=== PATIENT | female | born 1955 | race Caucasian/White ===

== ENCOUNTER 2023-11-05 17:08 | Emergency (ER) | payer OTHER, SELFPAY ==
[2023-11-05] VITALS (16 sets, daily range): BP systolic 151–183; BP diastolic 65–101; PULSE 70–92; RESP 16–22; TEMP 36.4–36.5; O2SAT 92–99; BMI 25.6
--- NOTE | 2023-11-05 17:31 | ED_ITS ---
HPI - General Adult <Jr Clifford DO - Last Filed: 11/06/23 07:12> General Chief complaint: Abdominal Pain Stated complaint: abdominal pain Time Seen by Provider: 11/05/23 17:17 Source: patient and family Mode of arrival: Ambulatory History of Present Illness HPI narrative: Patient is a 68-year-old female. Several days ago was seen at an outside facility for right upper quadrant pain/right lower chest wall pain. Had an ultrasound. Was told that she had gallstones but no other signs of an infection. Was discharged home. Since that time has had worsening right upper quadrant pain. Subjective fevers. No vomiting. No chest pain. No shortness of breath. No change in bowel habits or urinary symptoms. They were reportedly not sent home with any pain medication. They have not followed up with General surgery since the diagnosis. Related Data Home Medications Medication Instructions Recorded Confirmed budesonide 0.5 mg/2 mL suspension 0.5 mg inhalation BID 11/05/23 11/05/23 for nebulization cefdinir 300 mg capsule 300 mg PO DAILY 11/05/23 11/05/23 insulin aspart U-100 100 unit/mL 38 unit SUBCUT BID 11/05/23 11/05/23 (3 mL) subcutaneous pen (Novolog FlexPen U-100 Insulin aspart) insulin glargine 100 unit/mL (3 38 unit SUBCUT BID 11/05/23 11/05/23 mL) subcutaneous pen (Basaglar KwikPen U-100 Insulin) lisinopril 40 mg tablet 40 mg PO DAILY 11/05/23 11/05/23 metformin 1,000 mg tablet 1,000 mg PO BID 11/05/23 11/05/23 metoprolol tartrate 25 mg tablet 25 mg PO BID 11/05/23 11/05/23 trazodone 50 mg tablet 100 mg PO ONCE PM PRN Anxiety 11/05/23 11/05/23 Previous Rx's Medication Instructions Recorded hydrocodone 5 mg-acetaminophen 325 1 tab PO Q6H PRN pain #10 tabs 11/05/23 mg tablet Allergies Allergy/AdvReac Type Severity Reaction Status Date / Time methylprednisolone Allergy Severe Palpitation Verified 11/05/23 18:04 s oxycodone [From OxyContin] Allergy Unknown Verified 11/05/23 18:07 Penicillins Allergy Unknown Verified 11/05/23 18:02 sulfamethoxazole Allergy Palpitation Verified 11/05/23 18:07 [From s Sulfamethoxazole-Trimethoprim] trimethoprim Allergy Palpitation Verified 11/05/23 18:07 [From s Sulfamethoxazole-Trimethoprim] contrast dye Allergy Unknown Uncoded 11/05/23 18:07 Review of Systems <Jr Clifford DO - Last Filed: 11/06/23 07:12> Constitutional Constitutional: Reports system reviewed and no additional complaints, except as documented Cardiovascular Cardiovascular: Reports system reviewed and no additional complaints, except as documented Respiratory Respiratory: Reports system reviewed and no additional complaints, except as documented Gastrointestinal Gastrointestinal: Reports system reviewed and no additional complaints, except as documented Genitourinary Genitourinary: Reports system reviewed and no additional complaints, except as documented Integumentary/Breasts Skin/Breast: Reports system reviewed and no additional complaints, except as documented Exam <Jr Clifford DO - Last Filed: 11/06/23 07:12> Initial Vital Signs Initial Vital Signs: Vital Signs Temperature 97.5 F L 11/05/23 17:12 Pulse Rate 92 H 11/05/23 17:12 Respiratory Rate 11/05/23 17:12 Blood Pressure 171/101 H 11/05/23 17:12 Pulse Oximetry 99 11/05/23 17:12 Oxygen Delivery Method Room Air 11/05/23 17:12 HENOK Head: normal to inspection and normocephalic Neck Other: Stoma in anterior neck with a history of trach Resp Effort & Inspection: normal respiratory effort Auscultation: clear to auscultation bilaterally Cardio Rate: regular rate Rhythm: regular rhythm GI Inspection: normal to inspection and non-distended Palpation: soft, No firm, guarding and tender (Right upper quadrant, positive Hernandez's sign) Back/Spine/Pelvis Back: No CVA tenderness Neuro General: patient alert and patient awake Extrem Other: No gross deformities <Laura Ortega DO - Last Filed: 11/06/23 02:07> Initial Vital Signs Initial Vital Signs: Vital Signs Temperature 97.5 F L 11/05/23 17:12 Pulse Rate 92 H 11/05/23 17:12 Respiratory Rate 11/05/23 17:12 Blood Pressure 171/101 H 11/05/23 17:12 Pulse Oximetry 99 11/05/23 17:12 Oxygen Delivery Method Room Air 11/05/23 17:12 Course <Jr Clifford DO - Last Filed: 11/06/23 07:12> Orders Ordered: Discontinued Medications Morphine Sulfate (Morphine 4 Mg/Ml Inj) 4 mg IV NOW ONE Stop: 11/05/23 17:32 Last Admin: 11/05/23 17:44 Dose: 4 mg Documented By: VIOLETA Morphine Sulfate (Morphine 2 Mg/Ml Inj) 2 mg IV NOW ONE Stop: 11/05/23 20:09 Last Admin: 11/05/23 20:17 Dose: 2 mg Documented By: ISI Vital Signs Vital signs: Vital Signs - 8 hr 11/05/23 18:30 11/05/23 18:31 11/05/23 18:31 Temperature Pulse Rate 86 83 Respiratory Rate 18 Blood Pressure 167/68 H Pulse Oximetry 95 95 Oxygen Delivery Method 11/05/23 19:00 11/05/23 19:00 11/05/23 19:30 Temperature Pulse Rate 81 79 Respiratory Rate Blood Pressure 174/74 H Pulse Oximetry 94 95 Oxygen Delivery Method 11/05/23 19:31 11/05/23 19:31 11/05/23 20:00 Temperature Pulse Rate 79 81 Respiratory Rate Blood Pressure 160/98 H Pulse Oximetry 95 96 Oxygen Delivery Method 11/05/23 20:01 11/05/23 20:01 11/05/23 20:42 Temperature Pulse Rate 81 87 Respiratory Rate Blood Pressure 183/77 H Pulse Oximetry 96 92 Oxygen Delivery Method 11/05/23 20:43 11/05/23 20:43 11/05/23 21:00 Temperature Pulse Rate 85 Respiratory Rate Blood Pressure 151/65 H 170/82 H Pulse Oximetry 93 Oxygen Delivery Method 11/05/23 21:00 11/05/23 21:30 11/05/23 21:30 Temperature Pulse Rate 78 79 Respiratory Rate Blood Pressure 166/72 H Pulse Oximetry 93 92 Oxygen Delivery Method 11/05/23 22:44 Temperature 97.7 F Pulse Rate 70 Respiratory Rate 16 Blood Pressure 154/66 H Pulse Oximetry 98 Oxygen Delivery Method Room Air <Laura Ortega DO - Last Filed: 11/06/23 02:07> Orders Ordered: Discontinued Medications Morphine Sulfate (Morphine 4 Mg/Ml Inj) 4 mg IV NOW ONE Stop: 11/05/23 17:32 Last Admin: 11/05/23 17:44 Dose: 4 mg Documented By: VIOLETA Morphine Sulfate (Morphine 2 Mg/Ml Inj) 2 mg IV NOW ONE Stop: 11/05/23 20:09 Last Admin: 11/05/23 20:17 Dose: 2 mg Documented By: ISI Vital Signs Vital signs: Vital Signs - 8 hr 11/05/23 18:30 11/05/23 18:31 11/05/23 18:31 Temperature Pulse Rate 86 83 Respiratory Rate 18 Blood Pressure 167/68 H Pulse Oximetry 95 95 Oxygen Delivery Method 11/05/23 19:00 11/05/23 19:00 11/05/23 19:30 Temperature Pulse Rate 81 79 Respiratory Rate Blood Pressure 174/74 H Pulse Oximetry 94 95 Oxygen Delivery Method 11/05/23 19:31 11/05/23 19:31 11/05/23 20:00 Temperature Pulse Rate 79 81 Respiratory Rate Blood Pressure 160/98 H Pulse Oximetry 95 96 Oxygen Delivery Method 11/05/23 20:01 11/05/23 20:01 11/05/23 20:42 Temperature Pulse Rate 81 87 Respiratory Rate Blood Pressure 183/77 H Pulse Oximetry 96 92 Oxygen Delivery Method 11/05/23 20:43 11/05/23 20:43 11/05/23 21:00 Temperature Pulse Rate 85 Respiratory Rate Blood Pressure 151/65 H 170/82 H Pulse Oximetry 93 Oxygen Delivery Method 11/05/23 21:00 11/05/23 21:30 11/05/23 21:30 Temperature Pulse Rate 78 79 Respiratory Rate Blood Pressure 166/72 H Pulse Oximetry 93 92 Oxygen Delivery Method 11/05/23 22:44 Temperature 97.7 F Pulse Rate 70 Respiratory Rate 16 Blood Pressure 154/66 H Pulse Oximetry 98 Oxygen Delivery Method Room Air Medical Decision Making <Jr Clifford, DO - Last Filed: 11/06/23 07:12> Lab Data 11/05/23 17:36 11/05/23 17:36 Labs: Lab Results 11/05/23 Range/Units 17:36 WBC 7.1 (4.5-11.0) X10^3/uL RBC 4.45 (4.0-5.2) X10^6/uL Hgb 12.7 (12.0-16.0) g/dL Hct 37.3 (36-46) % MCV 84.0 (80-100) fL MCH 28.6 (26-34) PG MCHC 34.1 (30-36) % RDW 13.6 (11.6-14.8) % Plt Count 406 H (150-400) X10^3/uL Neut % (Auto) 60.3 (50-75) % Lymph % (Auto) 25.2 (25-40) % [place] % (Auto) 12.3 (3-14) % Eos % (Auto) 1.7 L (2-4) % Baso % (Auto) 0.5 (0-2) % Neut # (Auto) 4300 (9373-5969) /uL Lymph # (Auto) 1800 (8924-1450) /uL [place] # (Auto) 900 (0-900) /uL Eos # (Auto) 100 (0-450) /uL Baso # (Auto) 0 (0-100) /uL Sodium 134 L (137-145) mmol/L Potassium 4.9 (3.4-5.1) mmol/L Chloride 101 (98-107) mmol/L Carbon Dioxide 25 (22-32) mmol/L BUN 35 H (7-17) mg/dL Creatinine 1.41 H (0.52-1.04) mg/dL Estimated GFR 41 L (>60) mL/min BUN/Creatinine Ratio 24.8 H (6-22) Glucose 145 H (80-110) mg/dL Calcium 9.4 (8.4-10.2) mg/dL Total Bilirubin 0.4 (0.2-1.3) mg/dL AST 36 (14-36) IU/L ALT 25 (<35) IU/L Alkaline Phosphatase 59 (38-126) U/L Total Protein 7.6 (6.3-8.2) g/dL Albumin 3.8 (3.5-5.0) g/dL Globulin 3.8 (1.7-4.1) g/dL Albumin/Globulin Ratio 1.0 (1.0-2.8) Lipase 329 H (23-300) U/L [facility] Narrative Medical decision making narrative: Per report the patient has a history of cholelithiasis. Has had worsening pain since she was given this diagnosis. Subjective fevers. Pain will be his for labs and symptom control and right upper quadrant ultrasound. Care turned over to night provider to follow-up and disposition. <Laura Ortega DO - Last Filed: 11/06/23 02:07> Lab Data Labs: Lab Results 11/05/23 Range/Units 17:36 WBC 7.1 (4.5-11.0) X10^3/uL RBC 4.45 (4.0-5.2) X10^6/uL Hgb 12.7 (12.0-16.0) g/dL Hct 37.3 (36-46) % MCV 84.0 (80-100) fL MCH 28.6 (26-34) PG MCHC 34.1 (30-36) % RDW 13.6 (11.6-14.8) % Plt Count 406 H (150-400) X10^3/uL Neut % (Auto) 60.3 (50-75) % Lymph % (Auto) 25.2 (25-40) % [place] % (Auto) 12.3 (3-14) % Eos % (Auto) 1.7 L (2-4) % Baso % (Auto) 0.5 (0-2) % Neut # (Auto) 4300 (5030-7232) /uL Lymph # (Auto) 1800 (0810-2650) /uL [place] # (Auto) 900 (0-900) /uL Eos # (Auto) 100 (0-450) /uL Baso # (Auto) 0 (0-100) /uL Sodium 134 L (137-145) mmol/L Potassium 4.9 (3.4-5.1) mmol/L Chloride 101 (98-107) mmol/L Carbon Dioxide 25 (22-32) mmol/L BUN 35 H (7-17) mg/dL Creatinine 1.41 H (0.52-1.04) mg/dL Estimated GFR 41 L (>60) mL/min BUN/Creatinine Ratio 24.8 H (6-22) Glucose 145 H (80-110) mg/dL Calcium 9.4 (8.4-10.2) mg/dL Total Bilirubin 0.4 (0.2-1.3) mg/dL AST 36 (14-36) IU/L ALT 25 (<35) IU/L Alkaline Phosphatase 59 (38-126) U/L Total Protein 7.6 (6.3-8.2) g/dL Albumin 3.8 (3.5-5.0) g/dL Globulin 3.8 (1.7-4.1) g/dL Albumin/Globulin Ratio 1.0 (1.0-2.8) Lipase 329 H (23-300) U/L Imaging Data CT scan - abdomen/pelvis: Radiologist's Impression: PROCEDURE: CT ABDOMEN PELVIS W CON INDICATIONS: ruq pain, persistant worse TECHNIQUE: After the administration of intravenous contrast, axial sections acquired from the lung bases to the pubic symphysis. Coronal and sagittal reformats were performed. For radiation dose reduction, the following was used: automated exposure control, adjustment of mA and/or kV according to patient size. COMPARISON: None. FINDINGS: Image quality: Diagnostic. Lower Chest: No significant findings. ABDOMEN: Liver: No solid mass. Gallbladder: No radiopaque gallstones or wall thickening. Biliary ducts: No biliary dilation. Pancreas: No ductal dilation. Spleen: Size is within normal limits. Adrenal Glands: No adrenal nodules. Kidneys and Ureters: No hydronephrosis. No solid mass. No complex renal cystic lesion which requires follow up. Stomach and Bowel: Normal colonic caliber, without significant wall thickening. Right colonic obstipation. Peritoneum: No abnormal intraperitoneal fluid. No free air. Ventral Wall: No hernia. Abdominal Nodes: No retroperitoneal or mesenteric adenopathy by size criteria. Vessels: Aorta and inferior vena cava are normal in size. PELVIS: Pelvic Organs: Unremarkable. Bladder: Unremarkable. Pelvic Nodes: No enlarged lymph nodes. Miscellaneous: No inguinal hernias are seen. Bones: No aggressive osseous abnormality. Right cecal obstipation. IMPRESSION: Colonic obstipation on the right involving the cecum and extending into the hepatic flexure of the colon. This may explain current symptomatology. No biliary distension or evidence of pancreatitis is currently found. Dictated by: Juan Monzon M.D. on 11/05/2023 at 21:42 US - abdomen: Radiologist's Impression: PROCEDURE: US ABDOMEN LIMITED INDICATIONS: known gallstones, worsening right upper quadrant pain TECHNIQUE: Real-time focused scanning was performed of the abdomen, with image documentation. COMPARISON: None. FINDINGS: The liver is normal in size and demonstrates no suspicious lesions. Tiny nonobstructing stones are seen layering within the dependent gallbladder. The gallbladder wall is not thickened, measuring 3 mm or less. No specific pericholecystic fluid is seen. The sonographic Hernandez sign is negative. There is no biliary dilatation, the common bile duct measures 5 mm. The pancreas is not well seen, secondary to overlying bowel gas. IMPRESSION: Small layering gallstones are seen, without additional sonographic signs of cholecystitis. No biliary dilatation. Dictated by: Vince Tijerina M.D. on 11/05/2023 at 18:11 Approved by: Vince Tijerina M.D. on 11/05/2023 at 18:12 [facility] Narrative Medical decision making narrative: Per report the patient has a history of cholelithiasis. Has had worsening pain since she was given this diagnosis. Subjective fevers. Pain will be his for labs and symptom control and right upper quadrant ultrasound. Care turned over to night provider to follow-up and disposition. Dr. Ortega-patient signed out to me by Dr. Clifford I have seen evaluated patient myself. She is tender in her right upper quadrant. Initially seen without her brother at bedside who has a much better historian. They were seen at outside facility had x-ray and ultrasound which did show cholelithiasis. However for 1 week she has had increasing pain. Brother who she lives with reports that she keeps coming and telling him that she is in pain. She has had significant decrease in appetite. No significant nausea or vomiting. She would received Toradol which helped some. But is requesting something Else more. Blood work has been reviewed she has no leukocytosis, no elevation in bilirubin or liver enzymes or lipase. However creatinine is up slightly 1.41 unknown what her baseline is. Imaging reviewed ultrasound shows cholelithiasis without evidence of cholecystitis no wall thickening or pericholecystic fluid. CT did show some right upper quadrant obstipation. Patient reports that Toradol did help her with pain however morphine helped a bit more. Brother would like stronger pain medicine just in case. We discussed how opiates can cause constipation and make it worse so not to use it unless absolutely necessary. Discharge Plan Departure Patient Disposition: Home Clinical Impression: Cholelithiasis, Constipation Instructions: Gallstones, DI for Constipation Activity Restrictions/Additional Instructions: *You have been diagnosed with constipation and cholelithiasis *What to do: At this time you have very small gallstones which might be causing some of the problem however you also have a large amount of constipation in the right upper quadrant. Increase fluid intake high-fiber diet. You may also ultimately require your gallbladder to be removed however not emergently at this time. *Continue to take medications as directed [place] 1 tablet every 6 hours only if needed for severe pain, this does cause and worsen constipation so please be careful recommend trying something else for [id number] medications for constipation including MiraLax, senna, Dulcolax, magnesium citrate *Follow up with your primary care provider in 2-3 days or call [phone] *Return to ER if you should have increasing pain fever persistent vomiting or any new, worsening or concerning symptoms CONTROLLED SUBSTANCE DISCHARGE (Narcotoic/benzodiazepine/Flexeril/Phenergan) 1. You have been prescribed narcotic medications, it does have acetaminophen/Tylenol/paracetamol in it, DO NOT TAKE MORE THAN 4,00mg in 24 hours of Tylenol. TRAMADOL DOES NOT CONTAIN TYLENOL 2. Please understand that we cannot provide further refills of narcotics, benzodiazepines or controlled substances through the ED and her pain management will need to be through your provider. 3. While on these medications you cannot drive or operate heavy machinery. 4. You cannot sign legal documents or perform any duties such as this. 5. As long as you're taking opiate pain medications he should also be taking a stool softener such as Colace, Dulcolax, MiraLAX or prune juice, to help avoid constipation. Prescriptions: New hydrocodone-acetaminophen 5-325 mg tablet 1 tab PO Q6H PRN (Reason: pain) Qty: 10 0RF No Action insulin glargine [Basaglar KwikPen U-100 Insulin] 100 unit/mL (3 mL) insulin pen 38 unit SUBCUT BID Patient Comments: [NO ORIGINAL SIG] cefdinir 300 mg capsule 300 mg PO DAILY trazodone 50 mg tablet 100 mg PO ONCE PM PRN (Reason: Anxiety) metoprolol tartrate 25 mg tablet 25 mg PO BID lisinopril 40 mg tablet 40 mg PO DAILY metformin 1,000 mg Tablet 1,000 mg PO BID budesonide 0.5 mg/2 mL Suspension For Nebulization 0.5 mg INHALATION BID insulin aspart U-100 [Novolog FlexPen U-100 Insulin] 100 unit/mL (3 mL) Insulin Pen 38 unit SUBCUT BID Referrals: Miscellaneous,Doctor, MD [Primary Care Provider] - Stand Alone Forms: Patient Portal/API
[2023-11-05] MEDS: MORPHINE 4 MG/ML INJ IV (17:44)
[2023-11-05 17:52] LABS: Add Manual Diff / Slide Review NO; Basophils Absolute Auto 0 /uL (0-100); Basophils Percent Auto 0.5 % (0-2); Eosinophils Absolute Auto 100 /uL (0-450); Eosinophils Percent Auto 1.7 % (2-4); Hematocrit 37.3 % (36-46); Hemoglobin 12.7 g/dL (12.0-16.0); Lymphocytes Absolute Auto 1800 /uL (1100-4500); Lymphocytes Percent Auto 25.2 % (25-40); Mean Corpuscular HGB Conc 34.1 % (30-36); Mean Corpuscular Hemoglobin 28.6 PG (26-34); Monocytes Absolute Auto 900 /uL (0-900); Monocytes Percent Auto 12.3 % (3-14); Neutrophils Absolute Auto 4300 /uL (1500-7000); Neutrophils Percent Auto 60.3 % (50-75); Platelet Count 406 X10^3/uL (150-400); Red Blood Cell Count 4.45 X10^6/uL (4.0-5.2); Red Cell Distribution Width 13.6 % (11.6-14.8); White Blood Cell Count 7.1 X10^3/uL (4.5-11.0)
[2023-11-05 18:20] LABS: Alanine Aminotransferase 25 IU/L (<35); Albumin 3.8 g/dL (3.5-5.0); Alkaline Phosphatase 59 U/L (38-126); Aspartate Aminotransferase 36 IU/L (14-36); BUN Creatinine Ratio 24.8 (6-22); Bilirubin Total 0.4 mg/dL (0.2-1.3); Blood Urea Nitrogen 35 mg/dL (7-17); Calcium 9.4 mg/dL (8.4-10.2); Carbon Dioxide 25 mmol/L (22-32); Chloride 101 mmol/L (98-107); Estimated Glomerular Filt Rate 41 mL/min (>60); Globulin 3.8 g/dL (1.7-4.1); Glucose 145 mg/dL (80-110); HEMOLYSIS < 15 (0-50); Lipase 329 U/L (23-300); Potassium 4.9 mmol/L (3.4-5.1); Sodium 134 mmol/L (137-145); Total Protein 7.6 g/dL (6.3-8.2)
--- NOTE | 2023-11-05 20:08 | DI.CT.S_ITS ---
PROCEDURE: CT ABDOMEN PELVIS W CON INDICATIONS: ruq pain, persistant worse TECHNIQUE: After the administration of intravenous contrast, axial sections acquired from the lung bases to the pubic symphysis. Coronal and sagittal reformats were performed. For radiation dose reduction, the following was used: automated exposure control, adjustment of mA and/or kV according to patient size. COMPARISON: None. FINDINGS: Image quality: Diagnostic. Lower Chest: No significant findings. ABDOMEN: Liver: No solid mass. Gallbladder: No radiopaque gallstones or wall thickening. Biliary ducts: No biliary dilation. Pancreas: No ductal dilation. Spleen: Size is within normal limits. Adrenal Glands: No adrenal nodules. Kidneys and Ureters: No hydronephrosis. No solid mass. No complex renal cystic lesion which requires follow up. Stomach and Bowel: Normal colonic caliber, without significant wall thickening. Right colonic obstipation. Peritoneum: No abnormal intraperitoneal fluid. No free air. Ventral Wall: No hernia. Abdominal Nodes: No retroperitoneal or mesenteric adenopathy by size criteria. Vessels: Aorta and inferior vena cava are normal in size. PELVIS: Pelvic Organs: Unremarkable. Bladder: Unremarkable. Pelvic Nodes: No enlarged lymph nodes. Miscellaneous: No inguinal hernias are seen. Bones: No aggressive osseous abnormality. Right cecal obstipation. IMPRESSION: Colonic obstipation on the right involving the cecum and extending into the hepatic flexure of the colon. This may explain current symptomatology. No biliary distension or evidence of pancreatitis is currently found. Dictated by: Juan Monzon M.D. on 11/05/2023 at 21:42 Approved by: Juan Monzon M.D. on 11/05/2023 at 21:44
[2023-11-05] MEDS: MORPHINE 2 MG/ML INJ IV (20:17)
== END 2023-11-05 22:46 | disposition home or self-care (01) ==
PROVIDERS: Emergency Medicine; Emergency Provider Emergency Medicine
DX: K80.20 Calculus of gallbladder without cholecystitis without obstruction (principal); K59.00 Constipation, unspecified; Z79.899 Other long term (current) drug therapy
CPT/HCPCS: 36415; 74177; 76705; 80053; 83690; 85025; 96374; 96376; 99284; J2270; Q9967

== ENCOUNTER 2023-11-11 14:31 | Emergency (ER) | payer OTHER, SELFPAY ==
[2023-11-11] VITALS (13 sets, daily range): BP systolic 147–210; BP diastolic 56–83; PULSE 71–83; RESP 18; TEMP 37.1; O2SAT 94–98; BMI 25.6
--- NOTE | 2023-11-11 15:15 | ED.GENADULT ---
HPI - General Adult General Chief complaint: Abdominal Pain Stated complaint: rt side abd pain Time Seen by Provider: 11/11/23 14:46 Source: patient and family (Brother) Mode of arrival: Ambulatory History of Present Illness HPI narrative: Patient is a 68-year-old female. I evaluated her here in the emergency department a couple days ago for right-sided abdominal pain. She had a CT scan performed. She did have right-sided obstipation/constipation. She also had cholelithiasis. Her LFTs unremarkable. Discharged home with pain medication. She has not had a bowel movement since that time. She is continued to have right-sided abdominal pain. No vomiting. Much of the history is provided by the patient's brother. Related Data Home Medications Medication Instructions Recorded Confirmed budesonide 0.5 mg/2 mL suspension 0.5 mg inhalation BID 11/05/23 11/05/23 for nebulization cefdinir 300 mg capsule 300 mg PO DAILY 11/05/23 11/05/23 insulin aspart U-100 100 unit/mL 38 unit SUBCUT BID 11/05/23 11/05/23 (3 mL) subcutaneous pen (Novolog FlexPen U-100 Insulin aspart) insulin glargine 100 unit/mL (3 38 unit SUBCUT BID 11/05/23 11/05/23 mL) subcutaneous pen (Basaglar KwikPen U-100 Insulin) lisinopril 40 mg tablet 40 mg PO DAILY 11/05/23 11/05/23 metformin 1,000 mg tablet 1,000 mg PO BID 11/05/23 11/05/23 metoprolol tartrate 25 mg tablet 25 mg PO BID 11/05/23 11/05/23 trazodone 50 mg tablet 100 mg PO ONCE PM PRN Anxiety 11/05/23 11/05/23 Previous Rx's Medication Instructions Recorded hydrocodone 5 mg-acetaminophen 325 1 tab PO Q6H PRN pain #10 tabs 11/05/23 mg tablet acyclovir 800 mg tablet 800 mg PO 5XD 7 days #35 tabs 11/11/23 hydrocodone 5 mg-acetaminophen 325 1 tab PO Q4-6H PRN pain #14 tabs 11/11/23 mg tablet peg 3350-electrolytes 236 240 ml PO Q10M #4,000 mL 11/11/23 gram-22.74 gram-6.74 gram-5.86 gram solution (Golytely) Allergies Allergy/AdvReac Type Severity Reaction Status Date / Time methylprednisolone Allergy Severe Palpitation Verified 11/11/23 14:45 s oxycodone [From OxyContin] Allergy Unknown Verified 11/11/23 14:45 Penicillins Allergy Unknown Verified 11/11/23 14:45 sulfamethoxazole Allergy Palpitation Verified 11/11/23 14:45 [From s Sulfamethoxazole-Trimethoprim] trimethoprim Allergy Palpitation Verified 11/11/23 14:45 [From s Sulfamethoxazole-Trimethoprim] contrast dye Allergy Unknown Uncoded 11/11/23 14:45 Review of Systems Review of Systems Narrative: Provided by patient and brother Cardiovascular Cardiovascular: Reports system reviewed and no additional complaints, except as documented Respiratory Respiratory: Reports system reviewed and no additional complaints, except as documented Gastrointestinal Gastrointestinal: Reports system reviewed and no additional complaints, except as documented Genitourinary Genitourinary: Reports system reviewed and no additional complaints, except as documented Integumentary/Breasts Skin/Breast: Reports system reviewed and no additional complaints, except as documented Patient History Social History Smoking Status: Never smoker Smoking Status: Never smoker Substance Use Type: does not use Exam Initial Vital Signs Initial Vital Signs: Vital Signs Temperature 98.7 F 11/11/23 14:35 Pulse Rate 81 11/11/23 14:35 Respiratory Rate 18 11/11/23 14:35 Blood Pressure 148/65 H 11/11/23 14:35 Pulse Oximetry 98 11/11/23 14:35 Oxygen Delivery Method Room Air 11/11/23 14:35 Neck Other: Trach stoma in place anterior neck Resp Effort & Inspection: normal respiratory effort Auscultation: clear to auscultation bilaterally Cardio Rate: regular rate Rhythm: regular rhythm Skin Other: Patient with a vesicular rash and crusting located on the back and right flank around to the front. Localized surrounding erythema Neuro General: patient alert, patient awake and moves all extremities Course Orders Ordered: ED Orders 11/11/23 15:40 Complete Blood Count AUTO DIFF Stat Comprehensive Metabolic Panel Stat Lipase Stat Ondansetron HCl (Ondansetron 4 Mg Odt) 4 mg PO NOW PRN PRN Reason: Nausea And Vomiting Ondansetron HCl (Ondansetron 4 Mg/2 Ml Inj) 4 mg IV NOW PRN PRN Reason: Nausea And Vomiting Discontinued Medications Hydrocodone Bitart/Acetaminophen (Hydrocodone/Acet 5/325 Tablet) 1 tab PO NOW ONE Stop: 11/11/23 16:59 Vital Signs Vital signs: Vital Signs - 8 hr 11/11/23 14:35 11/11/23 14:50 11/11/23 14:52 Temperature 98.7 F Pulse Rate 81 81 Respiratory Rate 18 Blood Pressure 148/65 H 147/78 H Pulse Oximetry 98 97 Oxygen Delivery Method Room Air 11/11/23 14:52 11/11/23 15:00 11/11/23 15:01 Temperature Pulse Rate 81 83 81 Respiratory Rate Blood Pressure Pulse Oximetry 96 96 96 Oxygen Delivery Method Room Air 11/11/23 15:01 11/11/23 15:15 11/11/23 15:15 Temperature Pulse Rate 74 Respiratory Rate Blood Pressure 192/75 H 169/73 H Pulse Oximetry 96 Oxygen Delivery Method 11/11/23 15:30 11/11/23 15:30 11/11/23 16:00 Temperature Pulse Rate 71 Respiratory Rate Blood Pressure 184/70 H 150/65 H Pulse Oximetry 96 Oxygen Delivery Method 11/11/23 16:00 11/11/23 16:16 11/11/23 16:16 Temperature Pulse Rate 78 72 Respiratory Rate Blood Pressure 210/83 H Pulse Oximetry 96 95 Oxygen Delivery Method Room Air 11/11/23 16:30 11/11/23 16:30 Temperature Pulse Rate 74 Respiratory Rate Blood Pressure 191/81 H Pulse Oximetry 95 Oxygen Delivery Method Room Air Medical Decision Making Lab Data Lab results reviewed: Yes I reviewed the patient's lab results. 11/11/23 15:40 11/11/23 15:40 Labs: Lab Results 11/11/23 Range/Units 15:40 WBC 7.1 (4.5-11.0) X10^3/uL RBC 4.34 (4.0-5.2) X10^6/uL Hgb 12.2 (12.0-16.0) g/dL Hct 36.8 (36-46) % MCV 84.7 (80-100) fL MCH 28.2 (26-34) PG MCHC 33.2 (30-36) % RDW 13.7 (11.6-14.8) % Plt Count 474 H (150-400) X10^3/uL Neut % (Auto) 64.8 (50-75) % Lymph % (Auto) 24.2 L (25-40) % [place] % (Auto) 9.0 (3-14) % Eos % (Auto) 1.4 L (2-4) % Baso % (Auto) 0.6 (0-2) % Neut # (Auto) 4600 (7909-4721) /uL Lymph # (Auto) 1700 (0771-8404) /uL [place] # (Auto) 600 (0-900) /uL Eos # (Auto) 100 (0-450) /uL Baso # (Auto) 0 (0-100) /uL Sodium 130 L (137-145) mmol/L Potassium 4.8 (3.4-5.1) mmol/L Chloride 98 (98-107) mmol/L Carbon Dioxide 28 (22-32) mmol/L BUN 51 H (7-17) mg/dL Creatinine 2.37 H (0.52-1.04) mg/dL Estimated GFR 22 L (>60) mL/min BUN/Creatinine Ratio 21.5 (6-22) Glucose 131 H (80-110) mg/dL Calcium 9.2 (8.4-10.2) mg/dL Total Bilirubin 0.5 (0.2-1.3) mg/dL AST 31 (14-36) IU/L ALT 19 (<35) IU/L Alkaline Phosphatase 59 (38-126) U/L Total Protein 7.6 (6.3-8.2) g/dL Albumin 3.8 (3.5-5.0) g/dL Globulin 3.8 (1.7-4.1) g/dL Albumin/Globulin Ratio 1.0 (1.0-2.8) Lipase 285 (23-300) U/L [facility] Narrative Medical decision making narrative: Patient does have skin findings that are consistent with zoster. There is crusting but also new vesicles. Her LFTs are unremarkable. She does have a slight bump in her creatinine most likely related to fluid intake. I do feel that we can hold on CT scanning for now based on her exam. She has not vomiting. She also states that she feels like she is constipated. When she was here in the emergency department the other day when we obtained a CT scan it did show significant right-sided constipation/obstipation. Will discharge home with medications to help with the constipation. Will place her on acyclovir although I am not sure as to how long she has had this rash. I will refill pain medication other they understand that this can cause constipation itself. They were given return precautions. He expressed understanding and agreement. Discharge Plan Departure Patient Disposition: Home Clinical Impression: Abdominal pain, Constipation, Shingles Instructions: Shingles, DI for Abdominal Pain-Adult, DI for Constipation Activity Restrictions/Additional Instructions: I do recommend that you take the medications as directed. I also recommend that you contact her primary care doctor for a follow-up. Return to the emergency department for new symptoms. Prescriptions: New hydrocodone-acetaminophen 5-325 mg tablet 1 tab PO Q4-6H PRN (Reason: pain) Qty: 14 0RF acyclovir 800 mg tablet 800 mg PO 5XD 7 Days Qty: 35 0RF Rx Instructions: space evenly during waking hours peg 3350-electrolytes [Golytely] 236-22.74-6.74 -5.86 gram recon soln 240 ml PO Q10M Qty: 4000 0RF Rx Instructions: until fecal effluent is clear No Action insulin glargine [Basaglar KwikPen U-100 Insulin] 100 unit/mL (3 mL) insulin pen 38 unit SUBCUT BID Patient Comments: [NO ORIGINAL SIG] cefdinir 300 mg capsule 300 mg PO DAILY trazodone 50 mg tablet 100 mg PO ONCE PM PRN (Reason: Anxiety) metoprolol tartrate 25 mg tablet 25 mg PO BID lisinopril 40 mg tablet 40 mg PO DAILY metformin 1,000 mg Tablet 1,000 mg PO BID budesonide 0.5 mg/2 mL Suspension For Nebulization 0.5 mg INHALATION BID insulin aspart U-100 [Novolog FlexPen U-100 Insulin] 100 unit/mL (3 mL) Insulin Pen 38 unit SUBCUT BID hydrocodone-acetaminophen 5-325 mg tablet 1 tab PO Q6H PRN (Reason: pain) Qty: 10 0RF Referrals: Miscellaneous,Doctor, MD [Primary Care Provider] - Stand Alone Forms: Patient Portal/API
[2023-11-11 15:46] LABS: Add Manual Diff / Slide Review NO; Basophils Absolute Auto 0 /uL (0-100); Basophils Percent Auto 0.6 % (0-2); Eosinophils Absolute Auto 100 /uL (0-450); Eosinophils Percent Auto 1.4 % (2-4); Hematocrit 36.8 % (36-46); Hemoglobin 12.2 g/dL (12.0-16.0); Lymphocytes Absolute Auto 1700 /uL (1100-4500); Lymphocytes Percent Auto 24.2 % (25-40); Mean Corpuscular HGB Conc 33.2 % (30-36); Mean Corpuscular Hemoglobin 28.2 PG (26-34); Mean Corpuscular Volume 84.7 fL (80-100); Monocytes Absolute Auto 600 /uL (0-900); Neutrophils Absolute Auto 4600 /uL (1500-7000); Neutrophils Percent Auto 64.8 % (50-75); Platelet Count 474 X10^3/uL (150-400); Red Blood Cell Count 4.34 X10^6/uL (4.0-5.2); Red Cell Distribution Width 13.7 % (11.6-14.8); White Blood Cell Count 7.1 X10^3/uL (4.5-11.0)
[2023-11-11 16:02] LABS: Alanine Aminotransferase 19 IU/L (<35); Albumin 3.8 g/dL (3.5-5.0); Alkaline Phosphatase 59 U/L (38-126); Aspartate Aminotransferase 31 IU/L (14-36); BUN Creatinine Ratio 21.5 (6-22); Bilirubin Total 0.5 mg/dL (0.2-1.3); Blood Urea Nitrogen 51 mg/dL (7-17); Calcium 9.2 mg/dL (8.4-10.2); Carbon Dioxide 28 mmol/L (22-32); Chloride 98 mmol/L (98-107); Estimated Glomerular Filt Rate 22 mL/min (>60); Globulin 3.8 g/dL (1.7-4.1); Glucose 131 mg/dL (80-110); HEMOLYSIS < 15 (0-50); Lipase 285 U/L (23-300); Potassium 4.8 mmol/L (3.4-5.1); Sodium 130 mmol/L (137-145); Total Protein 7.6 g/dL (6.3-8.2)
--- NOTE | 2023-11-11 16:13 | PC.NURSE ---
PT and pt's family states she has not had a BM since her last ER visit. Pt denies nausea. Pt's family is concerned that because of her past medical history regarding lead poisoning and mental disability, that the increased stress and pain will cause her to have panic episodes.
[2023-11-11] MEDS: HYDROCODONE/ACET 5/325 TABLET 1 TAB PO (17:06)
== END 2023-11-11 17:45 | disposition home or self-care (01) ==
PROVIDERS: Emergency Provider Emergency Medicine
DX: R10.9 Unspecified abdominal pain (principal); K59.00 Constipation, unspecified; B02.9 Zoster without complications; Z79.899 Other long term (current) drug therapy
CPT/HCPCS: 36415; 80053; 83690; 85025; 99283

== ENCOUNTER 2023-11-20 20:54 | Emergency (ER) | payer OTHER, SELFPAY ==
[2023-11-20 20:57] VITALS: BP 182/85; PULSE 109; RESP 20; TEMP 36.5; O2SAT 98; BMI 27.7
--- NOTE | 2023-11-20 21:18 | ED.GENADULT ---
HPI - General Adult General Chief complaint: Abdominal Pain Stated complaint: return for right side pain Time Seen by Provider: 11/20/23 21:18 Source: family Mode of arrival: Ambulatory History of Present Illness HPI narrative: 68-year-old woman with a history of diabetes, coronary artery disease, COPD, cognitive deficit with her brother providing the majority of her caregiving presents with continued right-sided abdominal pain. She was seen on November 11 diagnosed with shingles. She was also noted to have significant right-sided obstipation/constipation. She was discharged home with hydrocodone and acyclovir along with prescription for GoLYTELY. Her brother did not have her complete the course of acyclovir and did use some French herbal supplements and felt that this was effective. He has been giving her half a tablet of the hydrocodone and she comes in today complaining of continued pain. There have been no fevers. She has been stooling appropriately. Her brother is concerned that with her pain she has not been sleeping for almost a week and her cognitive status is declining due to significant sleep deprivation. Related Data Home Medications Medication Instructions Recorded Confirmed budesonide 0.5 mg/2 mL suspension 0.5 mg inhalation BID 11/05/23 11/05/23 for nebulization cefdinir 300 mg capsule 300 mg PO DAILY 11/05/23 11/05/23 insulin aspart U-100 100 unit/mL 38 unit SUBCUT BID 11/05/23 11/05/23 (3 mL) subcutaneous pen (Novolog FlexPen U-100 Insulin aspart) insulin glargine 100 unit/mL (3 38 unit SUBCUT BID 11/05/23 11/05/23 mL) subcutaneous pen (Basaglar KwikPen U-100 Insulin) lisinopril 40 mg tablet 40 mg PO DAILY 11/05/23 11/05/23 metformin 1,000 mg tablet 1,000 mg PO BID 11/05/23 11/05/23 metoprolol tartrate 25 mg tablet 25 mg PO BID 11/05/23 11/05/23 trazodone 50 mg tablet 100 mg PO ONCE PM PRN Anxiety 11/05/23 11/05/23 Previous Rx's Medication Instructions Recorded hydrocodone 5 mg-acetaminophen 325 1 tab PO Q6H PRN pain #10 tabs 11/05/23 mg tablet hydrocodone 5 mg-acetaminophen 325 1 tab PO Q4-6H PRN pain #14 tabs 11/11/23 mg tablet peg 3350-electrolytes 236 240 ml PO Q10M #4,000 mL 11/11/23 gram-22.74 gram-6.74 gram-5.86 gram solution (Golytely) gabapentin 100 mg capsule 100 mg PO BEDTIME #30 caps 11/20/23 hydrocodone 5 mg-acetaminophen 325 1 tab PO TID #30 tabs 11/20/23 mg tablet lidocaine 5 % topical patch 1 patch topical DAILY #30 ea 11/20/23 Allergies Allergy/AdvReac Type Severity Reaction Status Date / Time methylprednisolone Allergy Severe Palpitation Verified 11/20/23 20:57 s oxycodone [From OxyContin] Allergy Unknown Verified 11/20/23 20:57 Penicillins Allergy Unknown Verified 11/20/23 20:57 sulfamethoxazole Allergy Palpitation Verified 11/20/23 20:57 [From s Sulfamethoxazole-Trimethoprim] trimethoprim Allergy Palpitation Verified 11/20/23 20:57 [From s Sulfamethoxazole-Trimethoprim] contrast dye Allergy Unknown Uncoded 11/11/23 14:45 Review of Systems Review of Systems Narrative: Pertinent positive and negative findings as per HPI Patient History Social History Smoking Status: Never smoker Smoking Status: Never smoker Substance Use Type: does not use Exam Initial Vital Signs Initial Vital Signs: Vital Signs Temperature 97.7 F 11/20/23 20:57 Pulse Rate 109 H 11/20/23 20:57 Respiratory Rate 20 11/20/23 20:57 Blood Pressure 182/85 H 11/20/23 20:57 Pulse Oximetry 98 11/20/23 20:57 Oxygen Delivery Method Room Air 11/20/23 20:57 General: Alert, appears fatigued, in moderate amount of pain. Skin: Healing zoster with majority of areas scabbed over in a right-sided T9 distribution Cardiac: Mild tachycardia no murmurs appreciated Pulmonary: No respiratory distress, no rales, rhonchi or wheezing Neurologic: Baseline cognitive delay, seems rather anxious but is cooperative. Can move all extremities. 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 Abdomen is benign Treatments: 100 mg of oral gabapentin, 1 Percocet, Percocet prepack to go home, lidocaine patch Discussion: 68-year-old woman with post herpetic neuralgia right-sided T9 distribution. No evidence of secondary cellulitis. Half hydrocodone up to 3 times a day is not effective in controlling her pain, with her cognitive impairment she is having difficulty understanding the pain and is significantly sleep deprived as she continues to get up almost hourly to wake her brother up complaining of pain. Regarding constipation the brother has used Jacobs trial mixed with milk of magnesia and she is stooling daily, I do not think that constipation is a current issue. We will try a series of medications to help mitigate her pain. She has an appointment with her primary care doctor on the . Please see discharge instructions for details. Patient is safe for discharge home Discharge Plan Departure Patient Disposition: Home Clinical Impression: HZV (herpes zoster virus) post herpetic neuralgia Instructions: DI for Shingles Activity Restrictions/Additional Instructions: Thank you for coming in today It is so frustrating taking to continue to hurt, to watch your loved one hurt and to have such difficulty accessing primary care. You are shingles is healing, there was no evidence of bacterial infection. Unfortunately with shingles, the nerve can be significantly inflamed and cause severe nerve pain. The medical term for this is post herpetic neuralgia. Medications to help with the nerve pain can help but nerve pain is very difficult to treat I have given a prescription for lidocaine patches, I would suggest placing the patch close to her spinal cord in the area of pain I have given you a prescription for gabapentin, 100 mg. This is actually a seizure medication in low doses can be helpful in decreasing nerve pain. I have given her a month supply, please review this with her primary care doctor I have refilled the hydrocodone. With this degree of pain it is okay to use a full pill up to 3 times a day. All prescriptions have been electronically transmitted to [facility] in [place]. Please make sure that you are continuing to give her a daily dose of milk of magnesia. This degree of pain can cause the bowels too slow and the narcotic will exacerbate that. Adding constipation to the shingles pain is not going to be helpful. If you find that you are getting worse or develop any new symptoms, please feel free to return to the emergency department for further evaluation. Prescriptions: New gabapentin 100 mg capsule 100 mg PO BEDTIME Qty: 30 0RF hydrocodone-acetaminophen 5-325 mg tablet 1 tab PO TID Qty: 30 0RF lidocaine 5 % adhesive patch,medicated 1 patch topical DAILY Qty: 30 0RF Rx Instructions: leave on most painful area for up to 12 hrs No Action insulin glargine [Basaglar KwikPen U-100 Insulin] 100 unit/mL (3 mL) insulin pen 38 unit SUBCUT BID Patient Comments: [NO ORIGINAL SIG] cefdinir 300 mg capsule 300 mg PO DAILY trazodone 50 mg tablet 100 mg PO ONCE PM PRN (Reason: Anxiety) metoprolol tartrate 25 mg tablet 25 mg PO BID lisinopril 40 mg tablet 40 mg PO DAILY metformin 1,000 mg Tablet 1,000 mg PO BID budesonide 0.5 mg/2 mL Suspension For Nebulization 0.5 mg INHALATION BID insulin aspart U-100 [Novolog FlexPen U-100 Insulin] 100 unit/mL (3 mL) Insulin Pen 38 unit SUBCUT BID hydrocodone-acetaminophen 5-325 mg tablet 1 tab PO Q6H PRN (Reason: pain) Qty: 10 0RF hydrocodone-acetaminophen 5-325 mg tablet 1 tab PO Q4-6H PRN (Reason: pain) Qty: 14 0RF peg 3350-electrolytes [Golytely] 236-22.74-6.74 -5.86 gram recon soln 240 ml PO Q10M Qty: 4000 0RF Rx Instructions: until fecal effluent is clear Referrals: Miscellaneous,Doctor, MD [Primary Care Provider] - Stand Alone Forms: Patient Portal/API
[2023-11-20] MEDS: LIDOCAINE 5% PATCH 1 EACH TOP (22:20)
[2023-11-20 22:21] VITALS: TEMP 36.5
[2023-11-20] MEDS: OXYCODONE/APAP 5/325 PREPACK 1 BOTTLE MISC (22:21)
[2023-11-20] MEDS: OXYCODONE/ACETAMINOPHEN 5/325 TABLET 1 TAB PO (22:21)
[2023-11-20] MEDS: GABAPENTIN 100 MG CAPSULE PO (22:22)
[2023-11-20 22:30] VITALS: BP 137/62; PULSE 106; RESP 20; O2SAT 97
== END 2023-11-20 22:30 | disposition home or self-care (01) ==
PROVIDERS: Emergency Provider Emergency Medicine
DX: B02.9 Zoster without complications (principal)
CPT/HCPCS: 99283

== ENCOUNTER 2024-06-10 17:50 | Emergency (ER) | payer OTHER, SELFPAY ==
[2024-06-10 17:59] VITALS: BP 179/72; PULSE 72; RESP 22; TEMP 36.2; O2SAT 98; BMI 30.2
--- NOTE | 2024-06-10 18:08 | DI.RAD.S_ITS ---
PROCEDURE: XR CHEST 1V INDICATIONS: chest pain TECHNIQUE: One view of the chest was acquired. COMPARISON: None. FINDINGS: Surgical changes and devices: None. Lungs and pleura: Lungs are clear. No pleural effusions or pneumothorax. Mediastinum: Mediastinal contours appear normal. Heart size is normal. Bones and chest wall: No suspicious bony lesions. Overlying soft tissues appear unremarkable. IMPRESSION: No acute cardiopulmonary abnormality is seen. Dictated by: Ghanshyam Otero M.D. on 06/10/2024 at 19:11 Approved by: Ghanshyam Otero M.D. on 06/10/2024 at 19:11
--- NOTE | 2024-06-10 18:08 | EKG_ITS ---
[address] [address] Test Date: 2024-06-10 Pat Name: Keshia Saunders Department: [facility] Room: Gender: Female Homeworker: MIGUEL : 1955 Requested By: Order Number: [id number] Reading MD: Chinmay Juarez MD Measurements Intervals [place] Rate: 67 P: 50 IA: 120 QRS: 73 QRSD: 82 T: 53 QT: 378 QTc: 399 Interpretive Statements Normal sinus rhythm Electronically Signed On 06-11-2024 8:58:56 PDT by Chinmay Juarez MD
[2024-06-10 18:31] LABS: Add Manual Diff / Slide Review NO; Basophils Absolute Auto 100 /uL (0-100); Basophils Percent Auto 0.8 % (0-2); Eosinophils Absolute Auto 200 /uL (0-450); Eosinophils Percent Auto 2.7 % (2-4); Hematocrit 34.7 % (36-46); Hemoglobin 11.7 g/dL (12.0-16.0); Lymphocytes Absolute Auto 2500 /uL (1100-4500); Lymphocytes Percent Auto 28.7 % (25-40); Mean Corpuscular HGB Conc 33.8 % (30-36); Mean Corpuscular Volume 85.9 fL (80-100); Monocytes Absolute Auto 900 /uL (0-900); Monocytes Percent Auto 9.9 % (3-14); Neutrophils Absolute Auto 5100 /uL (1500-7000); Neutrophils Percent Auto 57.9 % (50-75); Platelet Count 430 X10^3/uL (150-400); Red Blood Cell Count 4.04 X10^6/uL (4.0-5.2); Red Cell Distribution Width 12.7 % (11.6-14.8); White Blood Cell Count 8.8 X10^3/uL (4.5-11.0)
[2024-06-10 18:39] LABS: INR 0.9 (0.9-1.3); Prothrombin Time 10.7 SECONDS (9.4-12.5)
[2024-06-10 18:41] LABS: PTT Partial Thromboplastin Tim 33 SECONDS (25.1-36.5)
[2024-06-10 18:43] LABS: Alanine Aminotransferase 20 IU/L (<35); Albumin 3.7 g/dL (3.5-5.0); Alkaline Phosphatase 75 U/L (38-126); Aspartate Aminotransferase 36 IU/L (14-36); BUN Creatinine Ratio 37.2 (6-22); Bilirubin Total 0.4 mg/dL (0.2-1.3); Blood Urea Nitrogen 87 mg/dL (7-17); Calcium 9.1 mg/dL (8.4-10.2); Carbon Dioxide 20 mmol/L (22-32); Chloride 102 mmol/L (98-107); Creatine Kinase 93 U/L (30-135); Estimated Glomerular Filt Rate 22 mL/min (>60); Globulin 3.7 g/dL (1.7-4.1); Glucose 90 mg/dL (80-110); HEMOLYSIS < 15 (0-50); Lipase 512 U/L (23-300); Sodium 129 mmol/L (137-145); Total Protein 7.4 g/dL (6.3-8.2)
[2024-06-10 18:44] LABS: Potassium 5.9 mmol/L (3.4-5.1)
[2024-06-10 18:55] LABS: NT-proBNP (BNP-Adult 18+) 482 pg/mL (<125); Troponin I < 0.012 ng/mL (0.01-0.034)
--- NOTE | 2024-06-10 19:35 | ED.GENADULT ---
HPI - General Adult General Chief complaint: Hypertension Stated complaint: high blood pressure, dizziness Time Seen by Provider: 06/10/24 18:16 History of Present Illness HPI narrative: 69-year-old female with history of diabetes, dementia, hypertension, cognitive deficit presents with her brother for 1 month of ?dizziness? described as lightheadedness and elevated blood pressure readings at home. Brother reports multiple episodes of hypertension at home with BP as high as 190 systolic, even after being given her nightly lisinopril. Patient takes 40 mg of lisinopril and 25 mg of metoprolol daily. Mother also states that for the last month patient has experienced ?chills?, which is unusual because he states the patient never gets cold. Patient was currently denying complaints, denies pain anywhere. Related Data Home Medications Medication Instructions Recorded Confirmed budesonide 0.5 mg/2 mL suspension 0.5 mg inhalation BID 11/05/23 11/05/23 for nebulization insulin aspart U-100 100 unit/mL 38 unit SUBCUT BID 11/05/23 11/05/23 (3 mL) subcutaneous pen (Novolog FlexPen U-100 Insulin aspart) insulin glargine 100 unit/mL (3 38 unit SUBCUT BID 11/05/23 11/05/23 mL) subcutaneous pen (Basaglar KwikPen U-100 Insulin) lisinopril 40 mg tablet 40 mg PO DAILY 11/05/23 11/05/23 metformin 1,000 mg tablet 1,000 mg PO BID 11/05/23 11/05/23 metoprolol tartrate 25 mg tablet 25 mg PO BID 11/05/23 11/05/23 trazodone 50 mg tablet 100 mg PO ONCE PM PRN Anxiety 11/05/23 11/05/23 Previous Rx's Medication Instructions Recorded peg 3350-electrolytes 236 240 ml PO Q10M #4,000 mL 11/11/23 gram-22.74 gram-6.74 gram-5.86 gram solution (Golytely) gabapentin 100 mg capsule 100 mg PO BEDTIME #30 caps 11/20/23 hydrocodone 5 mg-acetaminophen 325 1 tab PO TID #30 tabs 11/20/23 mg tablet lidocaine 5 % topical patch 1 patch topical DAILY #30 ea 11/20/23 amlodipine 10 mg tablet 10 mg PO DAILY #30 tabs 06/10/24 hydralazine 25 mg tablet 25 mg PO TID PRN hypertension #20 06/11/24 tabs Allergies Allergy/AdvReac Type Severity Reaction Status Date / Time methylprednisolone Allergy Severe Palpitation Verified 06/10/24 18:46 s oxycodone [From OxyContin] Allergy Mild Verified 06/10/24 18:46 Penicillins Allergy Unknown Verified 06/10/24 18:46 sulfamethoxazole Allergy Palpitation Verified 06/10/24 18:46 [From s Sulfamethoxazole-Trimethoprim] trimethoprim Allergy Palpitation Verified 06/10/24 18:46 [From s Sulfamethoxazole-Trimethoprim] contrast dye Allergy Unknown Uncoded 11/11/23 14:45 Patient History Social History Smoking Status: Former smoker Smoking Status: Former smoker Substance Use Type: does not use Exam Initial Vital Signs Initial Vital Signs: Vital Signs Temperature 97.2 F L 06/10/24 17:59 Pulse Rate 72 06/10/24 17:59 Respiratory Rate 22 06/10/24 17:59 Blood Pressure 179/72 H 06/10/24 17:59 Pulse Oximetry 98 06/10/24 17:59 Oxygen Delivery Method Room Air 06/10/24 17:59 Const: Awake, alert, no acute distress, appears chronically unwell Cardiac: regular rate, regular rhythm RESP: unlabored, clear bilaterally, no wheezing GI: Soft, nontender, nondistended MSK: Atraumatic, full range of motion, no edema Skin: Warm, Dry, intact, no rashes Neuro: AO x2, CN II-XII grossly intact, moves all extremities Course Orders Ordered: Discontinued Medications Clonidine HCl (Clonidine 0.1 Mg Tablet) 0.2 mg PO NOW ONE Stop: 06/10/24 19:46 Last Admin: 06/10/24 20:06 Dose: 0.2 mg Documented By: VIOLETA Vital Signs Vital signs: Vital Signs - 8 hr 06/10/24 21:08 Pulse Rate 71 Respiratory Rate 14 Blood Pressure 155/68 H Pulse Oximetry 94 Oxygen Delivery Method Room Air Medical Decision Making Lab Data 06/10/24 18:20 06/10/24 18:20 Labs: Lab Results 06/10/24 Range/Units 18:20 WBC 8.8 (4.5-11.0) X10^3/uL RBC 4.04 (4.0-5.2) X10^6/uL Hgb 11.7 L (12.0-16.0) g/dL Hct 34.7 L (36-46) % MCV 85.9 (80-100) fL MCH 29.0 (26-34) PG MCHC 33.8 (30-36) % RDW 12.7 (11.6-14.8) % Plt Count 430 H (150-400) X10^3/uL Neut % (Auto) 57.9 (50-75) % Lymph % (Auto) 28.7 (25-40) % [place] % (Auto) 9.9 (3-14) % Eos % (Auto) 2.7 (2-4) % Baso % (Auto) 0.8 (0-2) % Neut # (Auto) 5100 (2585-6087) /uL Lymph # (Auto) 2500 (6633-7804) /uL [place] # (Auto) 900 (0-900) /uL Eos # (Auto) 200 (0-450) /uL Baso # (Auto) 100 (0-100) /uL PT 10.7 (9.4-12.5) SECONDS INR 0.9 (0.9-1.3) APTT 33 (25.1-36.5) SECONDS Sodium 129 L (137-145) mmol/L Potassium 5.9 H (3.4-5.1) mmol/L Chloride 102 (98-107) mmol/L Carbon Dioxide 20 L (22-32) mmol/L BUN 87 H (7-17) mg/dL Creatinine 2.34 H (0.52-1.04) mg/dL Estimated GFR 22 L (>60) mL/min BUN/Creatinine Ratio 37.2 H (6-22) Glucose 90 (80-110) mg/dL Calcium 9.1 (8.4-10.2) mg/dL Magnesium 2.0 (1.6-2.3) mg/dL Total Bilirubin 0.4 (0.2-1.3) mg/dL AST 36 (14-36) IU/L ALT 20 (<35) IU/L Alkaline Phosphatase 75 (38-126) U/L Total Creatine Kinase 93 (30-135) U/L Troponin I < 0.012 (0.01-0.034) ng/mL NT-Pro-B Natriuret Pep 482 H (<125) pg/mL Total Protein 7.4 (6.3-8.2) g/dL Albumin 3.7 (3.5-5.0) g/dL Globulin 3.7 (1.7-4.1) g/dL Albumin/Globulin Ratio 1.0 (1.0-2.8) Lipase 512 H (23-300) U/L Imaging Data Chest x-ray: Radiologist's Impression: PROCEDURE: XR CHEST 1V INDICATIONS: chest pain TECHNIQUE: One view of the chest was acquired. COMPARISON: None. FINDINGS: Surgical changes and devices: None. Lungs and pleura: Lungs are clear. No pleural effusions or pneumothorax. Mediastinum: Mediastinal contours appear normal. Heart size is normal. Bones and chest wall: No suspicious bony lesions. Overlying soft tissues appear unremarkable. IMPRESSION: No acute cardiopulmonary abnormality is seen. Dictated by: Ghanshyam Otero M.D. on 06/10/2024 at 19:11 Approved by: Ghanshyam Otero M.D. on 06/10/2024 at 19:11 ECG Data Interpretation: Normal sinus rhythm at 67 beats per minute. Normal NE, no STEMI MDM Narrative Additional Information: Chronically unwell appearing but not acutely toxic patient presenting for elevated blood pressure readings at home. Brother also reports some nonspecific dizziness and cold sensation for the last month, patient currently denying complaints at this time. Patient was hypertensive on arrival despite taking her usual daily blood pressure medications. Laboratory work is reviewed, WBC count 8.8, hemoglobin 11.7, platelets 430, sodium 129, potassium 5.9, creatinine 2.34, GFR 22, normal liver enzymes, troponin undetectable. EKG without peaked T waves or other findings of hyperkalemia. Chest x-ray negative for acute findings. Patient appears to have had elevated creatinine and hyponatremia as far back as October of 2023. Brother at bedside states that he has never been told that the patient needs to see a kidney doctor and they had no idea that the patient's kidney function was poor. Blood pressure improving after clonidine administration. Patient's case discussed with on-call nephrology Dr. Dixon, who recommended decreasing the patient's lisinopril, adding amlodipine, and adding as needed hydralazine for elevated blood pressure readings. Recommended following a low-potassium diet, and is single dose of Lokelma with repeat labs in 24-48 hours. These recommendations were discussed in depth with patient's brother at bedside. A referral 2. Nephrology was provided. Patient already has existing appointment with her primary care doctor in 2 weeks. They were counseled to return to the emergency department if they were unable to get a hold of their primary care doctor for repeat labs in 24-48 hours. Medication sent to pharmacy of choice. Discharge Plan Departure Patient Disposition: Home Clinical Impression: Hypertension, Kidney disease Instructions: DI for High Blood Pressure, Low-Potassium Diet Activity Restrictions/Additional Instructions: Your kidney function is elevated, and appears to has been elevated since at least October of this year. It was stable today, but I highly recommend that you follow up with a kidney doctor. A referral number has been provided. I spoke to a kidney doctor this evening and this is the medication that she recommends: * decrease your lisinopril to 20 mg daily from 40 mg daily. * start taking amlodipine 10 mg daily * follow a low-potassium diet. Call for a follow up appointment with nephrology. She also recommends that your laboratory work be repeated in 24-48 hours. If you are unable to make a primary appointment in his time then you may return to the emergency department for repeat blood draw. Prescriptions: New amlodipine 10 mg tablet 10 mg PO DAILY Qty: 30 0RF hydralazine 25 mg tablet 25 mg PO TID PRN (Reason: hypertension) Qty: 20 0RF Rx Instructions: for systolic blood pressure greater than 160mmHg No Action gabapentin 100 mg capsule 100 mg PO BEDTIME Qty: 30 0RF hydrocodone-acetaminophen 5-325 mg tablet 1 tab PO TID Qty: 30 0RF lidocaine 5 % adhesive patch,medicated 1 patch topical DAILY Qty: 30 0RF Rx Instructions: leave on most painful area for up to 12 hrs insulin glargine [Basaglar KwikPen U-100 Insulin] 100 unit/mL (3 mL) insulin pen 38 unit SUBCUT BID Patient Comments: [NO ORIGINAL SIG] trazodone 50 mg tablet 100 mg PO ONCE PM PRN (Reason: Anxiety) metoprolol tartrate 25 mg tablet 25 mg PO BID lisinopril 40 mg tablet 40 mg PO DAILY metformin 1,000 mg Tablet 1,000 mg PO BID budesonide 0.5 mg/2 mL Suspension For Nebulization 0.5 mg INHALATION BID insulin aspart U-100 [Novolog FlexPen U-100 Insulin] 100 unit/mL (3 mL) Insulin Pen 38 unit SUBCUT BID peg 3350-electrolytes [Golytely] 236-22.74-6.74 -5.86 gram recon soln 240 ml PO Q10M Qty: 4000 0RF Rx Instructions: until fecal effluent is clear Referrals: Agustin Isaac MD [Non-Staff] - Miscellaneous,DoctorMD [Primary Care Provider] - Stand Alone Forms: Patient Portal/API
[2024-06-10 20:06] VITALS: BP 173/74; PULSE 70
[2024-06-10] MEDS: cloNIDine 0.1 MG TABLET 0.2 MG PO (20:06)
[2024-06-10 20:07] VITALS: BP 173/74; PULSE 69; RESP 25; O2SAT 94
[2024-06-10 20:30] VITALS: PULSE 69; RESP 18
[2024-06-10] MEDS: SODIUM ZIRCONIUM CYCLOSILICATE 10 GM POWD.PACK PO (20:55)
[2024-06-10 21:08] VITALS: BP 155/68; PULSE 71; RESP 14; O2SAT 94
== END 2024-06-10 21:13 | disposition home or self-care (01) ==
PROVIDERS: Emergency Provider Emergency Medicine
DX: I10 Essential (primary) hypertension (principal); N28.9 Disorder of kidney and ureter, unspecified; R07.9 Chest pain, unspecified; R42 Dizziness and giddiness; Z79.899 Other long term (current) drug therapy
CPT/HCPCS: 36415; 71045; 80053; 82550; 83690; 83735; 83880; 84484; 85025; 85610; 85730; 93005; 93010; 99284